=== PATIENT | male | born 1965 | race Caucasian/White ===

== ENCOUNTER 2017-04-19 19:03 | Inpatient (IN) | payer MEDICARE ==
[2017-04-19 19:36] LABS: #Basophils 0.1 thou/uL (0.0-0.2); #Eosinphils 0.3 thou/uL (0.0-0.7); #Lymphocytes 1.2 thou/uL (1.20-3.40); #Monocytes 0.9 thou/uL (0.11-0.59); #Neutrophils 11.8 thou/uL (1.40-6.50); %Basophils 0.6 % (0.0-1.0); %Eosinophils 2.2 % (0.0-10.0); %Lymphocytes 8.6 % (21.0-51.0); %Neutrophils 82.6 % (42.0-75.0); Hemoglobin 14.2 g/dL (14.0-18.0); Mean Corpuscular HGB CONC 32.2 g/dL (32.0-36.0); Mean Corpuscular Hemoglobin 30.5 pg (27.0-31.0); Mean Corpuscular Volume 94.5 fl (80.0-94.0); Mean Platelet Volume 8.3 fL (7.4-10.4); Platelet Count 304 thou/uL (130-400); RBC Distribution Width 13.6 % (11.5-14.5); Red Blood Cell (RBC) Count 4.65 mill/uL (4.70-6.10); White Blood Cell (WBC) Count 14.3 thou/uL (4.8-10.8)
[2017-04-19 19:43] LABS: PTT 38.2 SEC (22.9-36.1); Prothrombin Time 13.4 SEC (12.0-14.7)
[2017-04-19 19:56] LABS: ALT (SGPT) 11 U/L (8-55); AST (SGOT) 17 U/L (5-34); Albumin 3.8 g/dL (3.5-5.0); Alkaline Phosphatase 98 U/L (40-150); Anion Gap 14 mmol/L (10-20); BUN (Urea Nitrogen) 11 mg/dL (8.4-25.7); Calc. Creatinine Clearance 0 mL/min (70-130); Calcium 9.7 mg/dL (7.8-10.44); Carbon Dioxide 27 mmol/L (22-29); Chloride 104 mmol/L (98-107); Estimated GFR-MDRD 88; Glucose 92 mg/dL (70-105); Potassium 4.5 mmol/L (3.5-5.1); Protein, Total 6.8 g/dL (6.0-8.3); Sodium 140 mmol/L (136-145)
--- NOTE | 2017-04-19 20:39 | RAD ---
PORTABLE CHEST: 04/19/17 HISTORY: Pneumothorax. No comparison available. There is a right sided chest tube in place. There is diffuse interstitial and confluent alveolar infi ltrate throughout the right mid and lower lung and there is a right sided effusion. There is right ap ical opacification which may represent loculated apical fluid or pleural thickening. Postoperative ch anges with radiopaque suture noted overlying the right apex. The left lung is well aerated and clear. IMPRESSION: 1. Diffuse infiltrate throughout the right lung more prominent in the right mid and lower lung w ith a right sided effusion. 2. Right apical opacification suggesting loculated fluid in the right apex. A right sided chest tube is noted. POS: [facility]
[2017-04-19] MEDS ORDERED: Ondansetron HCl/PF 4 MG/2 ML Vial ONE (20:41)
[2017-04-19] MEDS ORDERED: cefTRIAXone\\ROCEPHIN 1 GM in Sodium Chloride 0.9% 100 ML IVPB SCH (22:45)
[2017-04-19] MEDS: Nicotine 14 MG PATCH TD SCH (23:45)
[2017-04-19] MEDS ORDERED: Vancomycin HCl 1 GM in Premix Bag 1 BAG IVPB SCH (23:59)
[2017-04-20] MEDS: cefTRIAXone\\ROCEPHIN 1 GM, Syringe 0.4 ML in Sterile Water 9.6 ML SLOW IVP SCH ×2 (00:03→22:13)
--- NOTE | 2017-04-20 01:45 | HP ---
CHIEF COMPLAINT: Pneumothorax. PRIMARY CARE PHYSICIAN: Patient does not have a primary care provider. HISTORY OF PRESENT ILLNESS: This is a 52-year-old male who was recently hospitalized in [place] for a spontaneous pneumothorax approximately 2 weeks ago, he had a chest tube placed, the chest tube was removed and he subsequently had a pleurodesis. In followup on an outpatient basis, he is demonstrating shortness of breath. Repeat imaging demonstrated a large pneumothorax. Chest tube was subsequently placed over in [place] and the patient was transferred to our facility as they did not have any intensive care beds available over at their facility. At the time of my evaluation, the patient has a left-sided chest tube to what appears to be a low suction on the wall. He is conversant, endorses chest pain , particularly with deep breaths, but otherwise has no other complaints. REVIEW OF SYSTEMS: As per HPI. Constitutional: Denies any fevers or chills. Endorses an approximately 20- pound weight loss over the last year that has been unintentional. HEENT: Denies any dizziness, new headaches, dizziness or vision changes. Cardiovascular: Denies any shortness of breath. Endorses chest pain located and localized to his chest tube placement site. Respiratory: He states that prior to his spontaneous pneumothorax, he was experiencing upper respiratory infection, but otherwise denies any current cough or sputum production. Gastrointestinal: Patient denies any nausea, any vomiting. Does endorse early satiety over the last year. Denies any diarrhea or constipation. Genitourinary: Denies any dysuria, changes in urinary frequency quality or quantity. Musculoskeletal: Denies any new myalgias or arthralgias, but overall generalized subjective weakness compared to previously. Remainder of review of systems otherwise negative. PAST MEDICAL HISTORY: As per above. Patient has no prior known medical issues prior to this spontaneous pneumothorax. PAST SURGICAL HISTORY: No prior surgeries. FAMILY HISTORY: No known family history of recurrent pneumothoraces. No family history of active pulmonary or cardiac disease. HOME MEDICATIONS: Please see the EMR for full records. Patient denies any chronic home medications. ALLERGIES: No known drug allergies. SOCIAL HISTORY: The patient is a smoker who recently quit in 03/2017 after his spontaneous pneumothorax. Denies any alcohol or illicit drug use. He indicates that his sister at bedside would be his medical decision maker if he is unable to make his own medical decisions and wishes to be FULL CODE at this point in time. PHYSICAL EXAMINATION: VITAL SIGNS: Blood pressure 138/64, heart rate is 67, respirations 18, satting 98% on room air, temperature 98.5. GENERAL: The patient is awake, alert, conversant, in no acute distress, appears to be a reasonable historian. HEENT: Normocephalic, atraumatic. Equal ocular motions are intact. Pupils are equal and reactive. Edentulous. No posterior oropharyngeal exudate or erythema. CARDIOVASCULAR: S1, S2. Pulses 2+ in bilateral upper extremities, no pitting pedal edema. RESPIRATORY: Limited anterior examination, limited air movement secondary to patient not wanting to take deep breaths due to pain, but otherwise clear to auscultation bilaterally. No wheezes, rales or rhonchi. ABDOMEN: Positive bowel sounds, soft, nontender to palpation. NEUROLOGIC: Able to move all 4 extremities equally. LABORATORY DATA AND IMAGING: On 04/19/2017, chest x-ray, impression, "diffuse infiltrate throughout the right lung, more prominent in the right middle and lower lung with a right-sided effusion. Right apical opacification suggesting localized fluid in the right apex. A right-sided chest tube is noted." WBC 14.3, hemoglobin 14.2, hematocrit 43.9, platelets 304. PT 13.4, INR 1.0, APTT 38.2. Sodium 140, potassium 4.5, chloride 104, bicarb 27, BUN 11, creatinine 0.9, glucose 92, calcium 9.7, total bilirubin 1.0, AST 17, ALT 11, alkaline phosphatase 98, total protein 6.8, albumin 3.8, globulin 3.0. ASSESSMENT AND PLAN: 1. Recurrent pneumothorax, right side. I appreciate CV Surgery consultation. The patient currently has a chest tube. We will manage as per CV surgical recommendations. Unclear etiology for the patient's recurrent pneumothorax, although this certainly could be related to his known tobacco history in the setting of likely after diagnosis of COPD and emphysematous disease. Continue to closely monitor respiratory status. Recommend repeat chest x-ray in the a.m. 2. Sepsis with respirations of 20 earlier in the emergency department documentation along with leukocytosis and a question of infiltrate on the right side. Empiric antibiotics to include ceftriaxone, vancomycin secondary to recent instrumentation of the right pulmonary parenchyma. We will closely monitor. Repeat CBC in the a.m. 3. History of tobacco use. We will closely monitor respiratory status if there is any consistency with a potential clinical diagnosis of COPD would have a low threshold to initiate a COPD exacerbation regimen. However, as patient currently appears to be stable from a respiratory standpoint. 4. Admit as an inpatient. FULL CODE. Thank you for asking me to care for this patient. VIRGINIAD
--- NOTE | 2017-04-20 01:48 | CON ---
DATE OF CONSULTATION: 04/19/2017 REQUESTING PHYSICIAN: Dr. Holder in the emergency room. CHIEF COMPLAINT: Recurrent pneumothorax. 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 I spoke with the transferring physician, Dr. Craven in [place]. Dr. Craven related that abo ut 2 weeks ago, he had a right-sided pneumothorax that did not say expanded during routine chest tube management and he underwent thoracoscopic plication of apical blebs with mechanical pleurodesis. He appeared to do well. His chest tube was removed and he was sent home, but today when home health ch taryn done, he was found to be hypoxic and when brought to the hospital, he was found to have a large r ight-sided pneumothorax again. There were couple of areas of tethering of the lung and a little bit of fluid, modest amount of bloody fluid was evacuated upon placing right-sided 32-American chest tube. The lung was reexpanded well, but the standard of care at that hospital would be to place such patie nt in the intensive care unit. There was no bed available and he was transferred here. PAST SURGICAL HISTORY: Significant for being mentally challenged. MEDICATIONS: He was recently started on lisinopril 20 mg a day and Tylenol No.3 as needed for pain. ALLERGIES: He reports an allergy to PENICILLIN, which causes rash. REVIEW OF SYSTEMS: Most notable for some of his cognitive challenges. PHYSICAL EXAMINATION: GENERAL: He is in no distress. He has a right-sided chest tube in place with a modest air leak. VITAL SIGNS: His heart rate is 68, blood pressure 121/62, respirations 26, O2 sats are 97%. LUNGS: He has distant breath sounds. Regular rate and rhythm. ABDOMEN: Soft and nontender. LABORATORY DATA AND X-RAY FINDINGS: His chest x-ray is consistent with significant COPD. His right- sided chest tube in place with good re-expansion of the lung with the exception of a very small area at the apex is not completely expanded. IMPRESSION AND RECOMMENDATIONS: As outlined to me by Dr. Craven, I would think that this probably re presents an early recurrence before the mechanical pleurodesis had a chance to "set up" and my plan w ould be to attempt a simple routine chest tube management of this episode of pneumothorax and defer r e-intervening for standard criteria of failure to re-expand the lung, failure to seal the air leak or recurrence of his pneumothorax.
[2017-04-20 02:46] VITALS: BMI 14.8
[2017-04-20] MEDS: Ondansetron HCl/PF 4 MG/2 ML Vial IVP PRN ×2 (03:58→23:46)
[2017-04-20 04:35] LABS: #Basophils 0.1 thou/uL (0.0-0.2); #Eosinphils 0.1 thou/uL (0.0-0.7); #Lymphocytes 1.4 thou/uL (1.20-3.40); #Monocytes 0.6 thou/uL (0.11-0.59); #Neutrophils 10.1 thou/uL (1.40-6.50); %Basophils 0.6 % (0.0-1.0); %Eosinophils 0.6 % (0.0-10.0); %Lymphocytes 11.5 % (21.0-51.0); %Monocytes 4.6 % (0.0-10.0); %Neutrophils 82.7 % (42.0-75.0); Hemoglobin 13.1 g/dL (14.0-18.0); Mean Corpuscular HGB CONC 32.5 g/dL (32.0-36.0); Mean Corpuscular Hemoglobin 30.7 pg (27.0-31.0); Mean Corpuscular Volume 94.4 fl (80.0-94.0); Mean Platelet Volume 8.8 fL (7.4-10.4); Platelet Count 280 thou/uL (130-400); RBC Distribution Width 13.5 % (11.5-14.5); Red Blood Cell (RBC) Count 4.27 mill/uL (4.70-6.10); White Blood Cell (WBC) Count 12.2 thou/uL (4.8-10.8)
[2017-04-20 04:52] LABS: Anion Gap 13 mmol/L (10-20); BUN (Urea Nitrogen) 17 mg/dL (8.4-25.7); Calc. Creatinine Clearance 65 mL/min (70-130); Calcium 9.5 mg/dL (7.8-10.44); Carbon Dioxide 28 mmol/L (22-29); Chloride 102 mmol/L (98-107); Estimated GFR-MDRD 84; Glucose 100 mg/dL (70-105); Sodium 138 mmol/L (136-145)
[2017-04-20] MEDS: Sodium Chloride 0.9% 1,000 ML IV SCH ×3 (06:32→20:10)
--- NOTE | 2017-04-20 07:30 | RAD ---
CHEST PA AND LATERAL: HISTORY: A 52-year-old male with history of followup pneumothorax. FINDINGS: Right chest tube in place. Again noted is a small right apical pneumothorax. Patchy interstitial an d reticulonodular parenchymal changes in the right mid and particularly in the right lower lobe. The left chest is stable. IMPRESSION: Stable small apical pneumothorax. Stable right lung parenchymal changes. Continued followup for com plete clearing. POS: [facility]
[2017-04-20] MEDS: Vancomycin HCl 750 MG in Sodium Chloride 0.9% 250 ML 250 ML IVPB SCH ×3 (08:16→23:40)
[2017-04-20] MEDS ORDERED: FLU VACC QS2017-18 36 mo. & older 0.5 ML SYRINGE IM ONE (09:00)
[2017-04-20] MEDS: Heparin 5,000 UNITS/ML VIAL SC SCH ×3 (09:09→20:04)
[2017-04-20] MEDS: Famotidine/PF 20 mg/2ml Vial SLOW IVP SCH ×2 (09:09→20:04)
--- NOTE | 2017-04-20 14:10 | PDOC.PN ---
- Subjective Encounter Start Date: 04/20/17 Encounter Start Time: 14:12 Subjective: No new complaints. -: Sitting comfortably in bed. -: No acute overnight events. - Objective Resuscitation Status: Resuscitation Status FULL:Full Resuscitation MAR Reviewed: Yes Vital Signs & Weight: Vital Signs (12 hours) Temp Pulse Resp BP Pulse Ox 04/20/17 12:00 98.3 F 66 15 159/83 H 99 04/20/17 08:40 97.7 F 92 14 96 04/20/17 07:57 97.7 F 92 14 150/73 H 96 04/20/17 04:31 97.9 F 72 16 120/75 97 Weight Admit Weight 112 lb Weight 112 lb I&O: 04/19/17 04/20/17 04/21/17 06:59 06:59 06:59 Intake Total 350 Output Total 200 Balance 150 Result Diagrams: 04/20/17 03:47 04/20/17 03:47 Phys Exam - Physical Examination Constitutional: NAD HEENT: PERRLA, moist MMs, sclera anicteric Neck: supple, full ROM Respiratory: no wheezing, no rales, no rhonchi, clear to auscultation bilateral decreased breath sounds on the left Cardiovascular: no rub Gastrointestinal: soft, non-tender, no distention, positive bowel sounds Musculoskeletal: no edema, pulses present Psychiatric: normal affect, A&O x 3 Skin: no rash, normal turgor Dx/Plan (1) Pneumothorax Code(s): J93.9 - PNEUMOTHORAX, UNSPECIFIED Status: Acute Qualifiers: Pneumothorax type: spontaneous, primary Qualified Code(s): J93.11 - Primary spontaneous pneumothorax Comment: Had pleurodesis failure. Admitted recently for pneumothorax @ [facility]. Stable s/p chest tube 04/19. Obtain serial CXR Monitor vital signs Reiterate smoking cessation. (2) Sepsis Code(s): A41.9 - SEPSIS, UNSPECIFIED ORGANISM Status: Acute Qualifiers: Sepsis type: sepsis due to unspecified organism Qualified Code(s): A41.9 - Sepsis, unspecified organism Comment: Stable. Started on broad spectrum abx. Will continue. (3) Tobacco abuse Code(s): Z72.0 - TOBACCO USE Status: Acute Plan: Smoking cessation emphasized. - Plan cont current plan of care, continue antibiotics, respiratory therapy * .
[2017-04-20] MEDS: Nicotine 14 MG PATCH TD SCH (22:13)
[2017-04-20] MEDS: Acetaminophen 325 MG TAB PO PRN (22:14)
[2017-04-20 23:20] LABS: Vancomycin, Trough 19.7 ug/mL
[2017-04-21] MEDS: Acetaminophen 325 MG TAB PO PRN ×3 (04:32→22:07)
[2017-04-21 04:38] LABS: #Basophils 0.1 thou/uL (0.0-0.2); #Eosinphils 0.8 thou/uL (0.0-0.7); #Lymphocytes 1.6 thou/uL (1.20-3.40); #Monocytes 0.6 thou/uL (0.11-0.59); #Neutrophils 5.5 thou/uL (1.40-6.50); %Basophils 1.1 % (0.0-1.0); %Eosinophils 9.7 % (0.0-10.0); %Lymphocytes 18.4 % (21.0-51.0); %Monocytes 7.1 % (0.0-10.0); %Neutrophils 63.7 % (42.0-75.0); Hemoglobin 10.7 g/dL (14.0-18.0); Mean Corpuscular HGB CONC 31.8 g/dL (32.0-36.0); Mean Corpuscular Hemoglobin 29.9 pg (27.0-31.0); Mean Platelet Volume 8.5 fL (7.4-10.4); Platelet Count 226 thou/uL (130-400); Red Blood Cell (RBC) Count 3.58 mill/uL (4.70-6.10); White Blood Cell (WBC) Count 8.6 thou/uL (4.8-10.8)
[2017-04-21 04:49] LABS: Anion Gap 12 mmol/L (10-20); BUN (Urea Nitrogen) 17 mg/dL (8.4-25.7); Calc. Creatinine Clearance 74 mL/min (70-130); Calcium 8.7 mg/dL (7.8-10.44); Carbon Dioxide 25 mmol/L (22-29); Chloride 106 mmol/L (98-107); Estimated GFR-MDRD Greater than 90; Glucose 88 mg/dL (70-105); Sodium 139 mmol/L (136-145)
[2017-04-21] MEDS: Heparin 5,000 UNITS/ML VIAL SC SCH ×3 (08:38→20:43)
[2017-04-21] MEDS: Lisinopril 20 MG TAB PO SCH (08:38)
[2017-04-21] MEDS: Famotidine/PF 20 mg/2ml Vial SLOW IVP SCH ×2 (08:39→20:43)
[2017-04-21] MEDS: Sodium Chloride 0.9% 1,000 ML IV SCH (08:40)
--- NOTE | 2017-04-21 11:18 | PDOC.PN ---
- Subjective Encounter Start Date: 04/21/17 Encounter Start Time: 11:21 Subjective: No acute events overnight -: Patient c/o pain around chest tube site. - Objective Resuscitation Status: Resuscitation Status FULL:Full Resuscitation Vital Signs & Weight: Vital Signs (12 hours) Temp Pulse Resp BP BP Pulse Ox 04/21/17 08:38 145/75 H 04/21/17 08:00 97.9 F 73 16 97 04/21/17 07:40 97.9 F 73 16 145/75 H 97 04/21/17 04:59 98.0 F 72 16 179/80 H 98 04/21/17 00:29 98.1 F 72 16 167/75 H 98 Weight Admit Weight 112 lb Weight 112 lb I&O: 04/20/17 04/21/17 04/22/17 06:59 06:59 06:59 Intake Total 2210 1500 Output Total 850 70 Balance 1360 1430 Result Diagrams: 04/21/17 03:59 04/21/17 03:59 Phys Exam - Physical Examination Constitutional: NAD HEENT: PERRLA, moist MMs, sclera anicteric Neck: supple, full ROM Respiratory: no wheezing, no rales, no rhonchi, clear to auscultation bilateral (reduced BS R lung field apically) Cardiovascular: RRR, no significant murmur, no rub Gastrointestinal: soft, non-tender, no distention, positive bowel sounds Musculoskeletal: no edema, pulses present Neurological: non-focal, moves all 4 limbs Psychiatric: normal affect, A&O x 3 Skin: no rash, normal turgor Dx/Plan (1) HTN (hypertension) Code(s): I10 - ESSENTIAL (PRIMARY) HYPERTENSION Status: Acute Qualifiers: Hypertension type: essential hypertension Qualified Code(s): I10 - Essential (primary) hypertension Comment: On Lisinopril. Fairly well controlled. (2) Pneumothorax Code(s): J93.9 - PNEUMOTHORAX, UNSPECIFIED Status: Acute Qualifiers: Pneumothorax type: spontaneous, primary Qualified Code(s): J93.11 - Primary spontaneous pneumothorax Comment: Had pleurodesis failure. Admitted recently for pneumothorax @ [place] s/p chest tube /. f/u pulm recs regarding chest tube removal. Ensure adequate pain control f/u CXR report (3) Tobacco abuse Code(s): Z72.0 - TOBACCO USE Status: Acute Comment: Reiterated smoking cessation. Nicotine patches. (4) Sepsis Code(s): A41.9 - SEPSIS, UNSPECIFIED ORGANISM Status: Resolved Qualifiers: Sepsis type: sepsis due to unspecified organism Qualified Code(s): A41.9 - Sepsis, unspecified organism Comment: Initially thought and started on broad spectrum Abx. Abx have been d/c. - Plan cont current plan of care, respiratory therapy, incentive spirometry, DVT proph w/heparin * .
[2017-04-21] MEDS ORDERED: Vancomycin HCl 750 MG in Sodium Chloride 0.9% 250 ML 250 ML IVPB SCH (12:00)
--- NOTE | 2017-04-21 12:39 | RAD ---
PORTABLE CHEST: HX:FU PNEUMOTHORAX Comparison: Prior day's exam. FINDINGS: Heart size within normal limits. Left lung remains clear. Right chest tube remains in place. Surgical chain-type sutures are seen in the right upper lobe. Right apical pneumothorax persists. The right s ided parenchymal changes are stable. IMPRESSION: Stable overall exam. POS: [facility]
[2017-04-21] MEDS: Nicotine 14 MG PATCH TD SCH (22:01)
[2017-04-22] MEDS: Acetaminophen 325 MG TAB PO PRN ×4 (03:54→20:24)
[2017-04-22 05:27] LABS: #Basophils 0.1 thou/uL (0.0-0.2); #Lymphocytes 1.8 thou/uL (1.20-3.40); #Monocytes 0.7 thou/uL (0.11-0.59); #Neutrophils 3.8 thou/uL (1.40-6.50); %Basophils 0.9 % (0.0-1.0); %Eosinophils 13.1 % (0.0-10.0); %Lymphocytes 24.9 % (21.0-51.0); %Monocytes 9.4 % (0.0-10.0); %Neutrophils 51.7 % (42.0-75.0); Hemoglobin 11.5 g/dL (14.0-18.0); Mean Corpuscular Hemoglobin 31.3 pg (27.0-31.0); Mean Corpuscular Volume 94.8 fl (80.0-94.0); Mean Platelet Volume 8.7 fL (7.4-10.4); Platelet Count 219 thou/uL (130-400); RBC Distribution Width 13.1 % (11.5-14.5); Red Blood Cell (RBC) Count 3.66 mill/uL (4.70-6.10); White Blood Cell (WBC) Count 7.4 thou/uL (4.8-10.8)
[2017-04-22 05:43] LABS: Anion Gap 8 mmol/L (10-20); BUN (Urea Nitrogen) 11 mg/dL (8.4-25.7); Calc. Creatinine Clearance 75 mL/min (70-130); Carbon Dioxide 31 mmol/L (22-29); Chloride 106 mmol/L (98-107); Estimated GFR-MDRD Greater than 90; Glucose 94 mg/dL (70-105); Potassium 3.8 mmol/L (3.5-5.1); Sodium 141 mmol/L (136-145)
--- NOTE | 2017-04-22 09:09 | RAD ---
CHEST 1 VIEW: Date: 04/22/17 HISTORY: Pneumothorax. Follow-up. COMPARISON: 04/21/17. FINDINGS: Cardiac silhouette is magnified by projection. Pulmonary vasculature is upper limits of normal. Right thoracostomy tube remains in good position. Right apical pneumothorax is unchanged in appearance fro m the previous exam. Postoperative changes are again demonstrated. Parenchymal opacity at the right b ase is stable. Lungs are otherwise hyperinflated. IMPRESSION: Stable postoperative appearance of the chest. POS: [facility]
[2017-04-22] MEDS: Lisinopril 20 MG TAB PO SCH (10:05)
[2017-04-22] MEDS: Famotidine/PF 20 mg/2ml Vial SLOW IVP SCH (10:06)
[2017-04-22] MEDS: Heparin 5,000 UNITS/ML VIAL SC SCH ×3 (10:06→20:24)
--- NOTE | 2017-04-22 11:07 | PDOC.PN ---
- Subjective Encounter Start Date: 04/22/17 Encounter Start Time: 11:09 Subjective: No new complaints. -: No acute events overnight - Objective Resuscitation Status: Resuscitation Status FULL:Full Resuscitation MAR Reviewed: Yes Vital Signs & Weight: Vital Signs (12 hours) Temp Pulse Resp BP BP Pulse Ox 04/22/17 10:05 170/80 H 04/22/17 07:16 97.9 F 56 L 16 145/83 H 99 04/22/17 04:00 98 F 63 20 159/75 H 97 04/22/17 01:32 98 04/21/17 23:57 98.3 F 70 20 177/77 H 97 Weight Admit Weight 112 lb Weight 112 lb I&O: 04/21/17 04/22/17 04/23/17 06:59 06:59 06:59 Intake Total 2210 2590 Output Total 850 1780 Balance 1360 810 Result Diagrams: 04/22/17 04:29 04/22/17 04:29 Phys Exam - Physical Examination Constitutional: NAD HEENT: PERRLA, moist MMs, sclera anicteric Neck: supple, full ROM Respiratory: no wheezing, no rales, no rhonchi Reduced BS oon R w mild crackles Cardiovascular: no rub Gastrointestinal: soft, non-tender, no distention, positive bowel sounds Musculoskeletal: no edema, pulses present Neurological: non-focal, moves all 4 limbs Psychiatric: normal affect, A&O x 3 Skin: no rash, normal turgor Dx/Plan (1) HTN (hypertension) Code(s): I10 - ESSENTIAL (PRIMARY) HYPERTENSION Status: Acute Qualifiers: Hypertension type: essential hypertension Qualified Code(s): I10 - Essential (primary) hypertension Comment: On Lisinopril. Not at goal. Dose increased to 40 mg daily. (2) Pneumothorax Code(s): J93.9 - PNEUMOTHORAX, UNSPECIFIED Status: Acute Qualifiers: Pneumothorax type: spontaneous, primary Qualified Code(s): J93.11 - Primary spontaneous pneumothorax Comment: Had pleurodesis failure. Admitted recently for pneumothorax @ [facility]. Stable s/p chest tube 04/19. f/u pulm recs regarding chest tube removal. Ensure adequate pain control Serial CXR with not much change. Will consult pulmonary. (3) Tobacco abuse Code(s): Z72.0 - TOBACCO USE Status: Acute Comment: Reiterated smoking cessation. Nicotine patches. (4) Sepsis Code(s): A41.9 - SEPSIS, UNSPECIFIED ORGANISM Status: Resolved Qualifiers: Sepsis type: sepsis due to unspecified organism Qualified Code(s): A41.9 - Sepsis, unspecified organism Comment: Initially thought and started on broad spectrum Abx. Abx have been d/c. - Plan cont current plan of care, plan discussed w/ family, DVT proph w/heparin * .
[2017-04-22] MEDS: Mometasone/Formoterol 120 PUFF INHALER INH SCH (19:00)
[2017-04-22] MEDS: Doxycycline 100 MG CAP PO SCH (20:24)
[2017-04-22] MEDS: Famotidine 20 MG TAB PO SCH (20:24)
[2017-04-22] MEDS: Nicotine 14 MG PATCH TD SCH (23:32)
--- NOTE | 2017-04-22 23:46 | CON ---
DATE OF CONSULTATION: 04/22/2017 HISTORY OF PRESENT ILLNESS: Hector Franks is a 52-year-old cachectic gentleman with longstanding t obacco abuse who apparently was transferred here from [place] for a spontaneous pneumothorax with right-sided chest tube in place. We are being consulted today it is unclear for what he has already been seen by Cardiovascular Surgery. He appears to have a small leak. X-ray today shows a right-james ed infiltrate. The patient denies any previous history of TB, pneumonia, or bronchial asthma. In fact, he says on he is able to walk about 50 feet without getting markedly short of breath. PAST MEDICAL HISTORY: Pertinent for hypertension. PREVIOUS SURGERIES: None except for the recent chest tube. SOCIAL HISTORY: As noted, he is disabled. FAMILY HISTORY: Unremarkable. REVIEW OF SYSTEMS: Ten-point negative. Please note his brother is at the bedside. Additional histo ry is obtained from the patient. No other family members present. I reviewed all of his x-rays and reports. PHYSICAL EXAMINATION: GENERAL: No distress. VITAL SIGNS: Blood pressure 160/70 temperature 97, pulse 64. CHEST: Decreased breath sounds without any wheezing. CARDIAC: Normal S1 and S2. No gallops. ABDOMEN: Soft. No masses. LABORATORY DATA: White count 7000, H and H 11 and 34, and platelet count 219. Electrolytes are norm al. Chest x-ray shows right-sided chest tube. Apparently, he has had pleurodesis done. IMPRESSION: From pulmonary standpoint of view, nothing to offer at this time. Continue empiric anti biotics, neb treatments, and supportive care. This is a consultation note of 70 minutes of which 50% time was spent at the bedside.
[2017-04-23] MEDS: Acetaminophen 325 MG TAB PO PRN ×4 (03:48→21:49)
[2017-04-23 04:49] LABS: #Basophils 0.1 thou/uL (0.0-0.2); #Eosinphils 1.2 thou/uL (0.0-0.7); #Lymphocytes 1.8 thou/uL (1.20-3.40); #Monocytes 0.7 thou/uL (0.11-0.59); #Neutrophils 3.7 thou/uL (1.40-6.50); %Basophils 1.6 % (0.0-1.0); %Eosinophils 16.1 % (0.0-10.0); %Lymphocytes 23.6 % (21.0-51.0); %Monocytes 8.8 % (0.0-10.0); %Neutrophils 49.9 % (42.0-75.0); Hemoglobin 11.2 g/dL (14.0-18.0); Mean Corpuscular HGB CONC 33.1 g/dL (32.0-36.0); Mean Corpuscular Hemoglobin 31.1 pg (27.0-31.0); Mean Corpuscular Volume 93.9 fl (80.0-94.0); Mean Platelet Volume 8.9 fL (7.4-10.4); Platelet Count 212 thou/uL (130-400); RBC Distribution Width 13.2 % (11.5-14.5); White Blood Cell (WBC) Count 7.4 thou/uL (4.8-10.8)
[2017-04-23 04:55] LABS: Anion Gap 9 mmol/L (10-20); BUN (Urea Nitrogen) 12 mg/dL (8.4-25.7); Calc. Creatinine Clearance 84 mL/min (70-130); Calcium 8.9 mg/dL (7.8-10.44); Carbon Dioxide 29 mmol/L (22-29); Chloride 106 mmol/L (98-107); Estimated GFR-MDRD Greater than 90; Glucose 98 mg/dL (70-105); Potassium 3.5 mmol/L (3.5-5.1); Sodium 140 mmol/L (136-145)
[2017-04-23] MEDS: Mometasone/Formoterol 120 PUFF INHALER INH SCH ×2 (07:11→19:08)
[2017-04-23] MEDS: Doxycycline 100 MG CAP PO SCH ×2 (08:38→21:49)
[2017-04-23] MEDS: Lisinopril 20 MG TAB PO SCH (08:38)
[2017-04-23] MEDS: Famotidine 20 MG TAB PO SCH ×2 (08:38→21:49)
[2017-04-23] MEDS: Heparin 5,000 UNITS/ML VIAL SC SCH ×4 (08:39→21:49)
--- NOTE | 2017-04-23 09:42 | RAD ---
PORTABLE AP CHEST: Date: 04/23/17 HISTORY: Pneumothorax, follow-up evaluation. COMPARISON: 04/22/17. FINDINGS: Right-sided thoracostomy tube remains in place and unchanged in position. Right apical pneumothorax w ith associated increased density also present at the right lung apex is again noted and unchanged. Th e interstitial and alveolar opacities at the right lung base do appear mildly improved from the prior exam. Left lung is clear. Cardiac silhouette and pulmonary vasculature are within normal limits. IMPRESSION: 1. Stable chest with right-sided thoracostomy tube and right apical pneumothorax with persistent inc reased density also seen at the right lung apex which may be related to fluid. 2. Mild improvement in aeration at the right lung base with persistent interstitial and alveolar opa cities present which may be related to infectious process. POS: [facility]
--- NOTE | 2017-04-23 10:56 | PDOC.PN ---
- Subjective Encounter Start Date: 04/23/17 Encounter Start Time: 11:05 Subjective: No new complaints. Pain well controlled. -: No acute events overnight. - Objective Resuscitation Status: Resuscitation Status FULL:Full Resuscitation Vital Signs & Weight: Vital Signs (12 hours) Temp Pulse Resp BP BP Pulse Ox 04/23/17 08:38 97.8 F 61 20 135/80 98 04/23/17 07:11 60 16 98 04/23/17 07:05 97.8 F 61 20 135/80 98 04/23/17 05:12 97.8 F 59 L 16 151/81 H 97 04/22/17 23:15 98.1 F 62 18 162/78 H 99 Weight Admit Weight 112 lb Weight 112 lb I&O: 04/22/17 04/23/17 04/24/17 06:59 06:59 06:59 Intake Total 2590 1575 Output Total 1780 1430 Balance 810 145 Result Diagrams: 04/23/17 04:07 04/23/17 04:07 Phys Exam - Physical Examination Constitutional: NAD HEENT: PERRLA, moist MMs, sclera anicteric Neck: supple, full ROM Respiratory: no wheezing, no rales, no rhonchi, clear to auscultation bilateral R chest tube in place. Cardiovascular: RRR, no significant murmur, no rub Gastrointestinal: soft, non-tender, no distention, positive bowel sounds Musculoskeletal: no edema, pulses present Neurological: non-focal, normal sensation Psychiatric: normal affect, A&O x 3 Skin: no rash, normal turgor Dx/Plan (1) HTN (hypertension) Code(s): I10 - ESSENTIAL (PRIMARY) HYPERTENSION Status: Acute Qualifiers: Hypertension type: essential hypertension Qualified Code(s): I10 - Essential (primary) hypertension Plan: Continue Lisinopril. Comment: On Lisinopril 40 mg daily. (2) Pneumothorax Code(s): J93.9 - PNEUMOTHORAX, UNSPECIFIED Status: Acute Qualifiers: Pneumothorax type: spontaneous, primary Qualified Code(s): J93.11 - Primary spontaneous pneumothorax Comment: Repeat CXR 04/23 shows mild improvement. Had pleurodesis failure. Admitted recently for pneumothorax @ [place]. s/p chest tube 04/19. (3) Tobacco abuse Code(s): Z72.0 - TOBACCO USE Status: Acute Comment: Reiterated smoking cessation. Nicotine patches. (4) Sepsis Code(s): A41.9 - SEPSIS, UNSPECIFIED ORGANISM Status: Resolved Qualifiers: Sepsis type: sepsis due to unspecified organism Qualified Code(s): A41.9 - Sepsis, unspecified organism Comment: Initially thought and started on broad spectrum Abx. Abx have been d/c. - Plan cont current plan of care, DVT proph w/heparin * .
--- NOTE | 2017-04-23 13:39 | PRG ---
DATE OF SERVICE: 04/23/2017 SUBJECTIVE: Golden has pain. No shortness of breath. OBJECTIVE: Sats are 90% on room air, respirations 20, temperature 97. Chest tubes on water seal. LABORATORY DATA: White count 7000, H and H 11 and 38. Electrolytes are normal. X-ray taken today shows improvement in his right-sided infiltrate. IMPRESSION: Chronic obstructive pulmonary disease, spontaneous pneumothorax, possibly pneumonia. PLAN: Continue doxy, continue Dulera. Home when CT is removed by surgery. I spoke to Dr. Olsen. They keep him close watch on this.
[2017-04-23] MEDS: Nicotine 14 MG PATCH TD SCH (21:49)
[2017-04-24 04:53] LABS: Hemoglobin 11.9 g/dL (14.0-18.0); Mean Corpuscular HGB CONC 32.7 g/dL (32.0-36.0); Mean Corpuscular Hemoglobin 31.4 pg (27.0-31.0); Platelet Count 225 thou/uL (130-400); RBC Distribution Width 13.4 % (11.5-14.5); Red Blood Cell (RBC) Count 3.78 mill/uL (4.70-6.10); White Blood Cell (WBC) Count 7.6 thou/uL (4.8-10.8)
[2017-04-24] MEDS: Acetaminophen 325 MG TAB PO PRN ×2 (05:05→21:05)
[2017-04-24 05:09] LABS: Anion Gap 12 mmol/L (10-20); BUN (Urea Nitrogen) 14 mg/dL (8.4-25.7); Calc. Creatinine Clearance 71 mL/min (70-130); Calcium 9.3 mg/dL (7.8-10.44); Carbon Dioxide 29 mmol/L (22-29); Chloride 105 mmol/L (98-107); Estimated GFR-MDRD Greater than 90; Glucose 119 mg/dL (70-105); Potassium 3.6 mmol/L (3.5-5.1); Sodium 142 mmol/L (136-145)
[2017-04-24] MEDS: Mometasone/Formoterol 120 PUFF INHALER INH SCH ×2 (07:05→18:26)
[2017-04-24] MEDS: Lisinopril 20 MG TAB PO SCH (09:16)
[2017-04-24] MEDS: Famotidine 20 MG TAB PO SCH ×2 (09:16→21:06)
[2017-04-24] MEDS: Doxycycline 100 MG CAP PO SCH ×2 (09:17→21:05)
[2017-04-24] MEDS: Heparin 5,000 UNITS/ML VIAL SC SCH ×3 (09:17→21:06)
--- NOTE | 2017-04-24 10:48 | PDOC.PN ---
- Subjective Encounter Start Date: 04/24/17 Encounter Start Time: 10:47 -: No complaints. -: No acute events overnight. - Objective Resuscitation Status: Resuscitation Status FULL:Full Resuscitation MAR Reviewed: Yes Vital Signs & Weight: Vital Signs (12 hours) Temp Pulse Resp BP BP Pulse Ox 04/24/17 09:16 152/81 H 04/24/17 08:21 97.8 F 62 20 98 04/24/17 07:10 97.8 F 62 20 152/81 H 98 04/24/17 07:05 66 16 100 04/24/17 04:00 98 F 65 16 133/74 98 04/24/17 00:00 98.3 F 65 20 147/78 H 97 Weight Admit Weight 112 lb Weight 112 lb I&O: 04/23/17 04/24/17 04/25/17 06:59 06:59 06:59 Intake Total 1575 Output Total 1430 120 Balance 145 -120 Result Diagrams: 04/24/17 03:31 04/24/17 03:31 Phys Exam - Physical Examination Constitutional: NAD HEENT: PERRLA, moist MMs, sclera anicteric Neck: supple, full ROM Respiratory: no wheezing, no rales, no rhonchi, clear to auscultation bilateral R chest tube sti Cardiovascular: no significant murmur, no rub Gastrointestinal: soft, non-tender, no distention, positive bowel sounds Musculoskeletal: no edema, pulses present Neurological: non-focal, moves all 4 limbs Psychiatric: normal affect, A&O x 3 Skin: no rash, normal turgor Dx/Plan (1) HTN (hypertension) Code(s): I10 - ESSENTIAL (PRIMARY) HYPERTENSION Status: Acute Qualifiers: Hypertension type: essential hypertension Qualified Code(s): I10 - Essential (primary) hypertension Comment: Fairly well Controlled. Lisinopril increased to 40 mg daily this admission. (2) Pneumothorax Code(s): J93.9 - PNEUMOTHORAX, UNSPECIFIED Status: Acute Qualifiers: Pneumothorax type: spontaneous, primary Qualified Code(s): J93.11 - Primary spontaneous pneumothorax Plan: Pulmonary started on Doxycycline based on CXR findings. Ordered repeat CXR today. Comment: Repeat CXR 04/23 shows mild improvement. Had pleurodesis failure. Admitted recently for pneumothorax @ [facility]. s/p chest tube 04/19. Cardiothoracic surgery following and managing chest tube. (3) Tobacco abuse Code(s): Z72.0 - TOBACCO USE Status: Acute Comment: Reiterated smoking cessation. Nicotine patches. (4) Sepsis Code(s): A41.9 - SEPSIS, UNSPECIFIED ORGANISM Status: Ruled-out Qualifiers: Sepsis type: sepsis due to unspecified organism Qualified Code(s): A41.9 - Sepsis, unspecified organism Comment: Ruled out. Initially thought and started on broad spectrum Abx. Abx have been d/c. - Plan cont current plan of care, continue antibiotics Home once chest tube removed. * .
--- NOTE | 2017-04-24 11:51 | RAD ---
PORTABLE AP CHEST: Date: 04/24/17 HISTORY: Follow-up pneumothorax. FINDINGS: Right-sided thoracostomy tube remains in place and unchanged in position. The right apical pneumothor ax, as well as associated increased density at the right lung apex are again seen and stable. Interst itial densities at the right lung base may be minimally improved, but persist. Left lung remains essie r. There has been no significant interval change from the prior exam. IMPRESSION: 1. Right-sided thoracostomy tube remaining in place with stable pneumothorax at the right lung apex with suggestion of minimal pneumothorax again present at the right lung base. Increased density right lung apex is also stable. 2. Stable interstitial densities right lung base which may be related to persistent infectious proce ss. POS: [facility]
--- NOTE | 2017-04-24 17:30 | PRG ---
DATE OF SERVICE: 04/24/2017 SUBJECTIVE: This morning, he is better, less short of breath. OBJECTIVE: VITAL SIGNS: Room air sats 98, blood pressure 150/80, temperature 97, pulse 62. CHEST: Decreased breath sounds, no wheezing. CARDIAC: Normal S1. ____ suctioned. IMPRESSION: Spontaneous pneumothorax, right side pneumonia, chronic obstructive pulmonary disease. CT removed, can be discharged home on antibiotics.
[2017-04-24] MEDS: Nicotine 14 MG PATCH TD SCH (23:16)
[2017-04-25] MEDS: HYDROcodone/Acetaminophen 10/325 mg Tablet PO PRN ×2 (03:27→23:09)
[2017-04-25] MEDS: Mometasone/Formoterol 120 PUFF INHALER INH SCH ×2 (06:17→19:08)
[2017-04-25] MEDS: Lisinopril 20 MG TAB PO SCH (08:24)
[2017-04-25] MEDS: Doxycycline 100 MG CAP PO SCH ×2 (08:29→22:47)
[2017-04-25] MEDS: Famotidine 20 MG TAB PO SCH ×2 (08:29→22:48)
[2017-04-25] MEDS: Heparin 5,000 UNITS/ML VIAL SC SCH ×3 (08:30→22:48)
--- NOTE | 2017-04-25 09:47 | PRG ---
DATE OF SERVICE: 04/25/2017 This morning in no distress, no pain. PHYSICAL EXAMINATION: VITAL SIGNS: Blood pressure 140/69, room air sats are 100%, respiratory 18, temperature 97. CHEST: Chest revealed decreased breath sounds, no wheezing. CARDIAC: Normal S1-S2. ABDOMEN: Soft, no masses. IMPRESSION: 1. Right spontaneous pneumothorax appears to have resolved. 2. Right-sided pneumonia. 3. Chronic obstructive pulmonary disease. PLAN: Order CT. He is ready for discharge home. Pulmonary will follow at a distance.
--- NOTE | 2017-04-25 09:55 | PDOC.PN ---
- Subjective Encounter Start Date: 04/25/17 Encounter Start Time: 08:00 -: old records requested/rev Patient seen and examined. No new complaints. No overnight events - Objective Resuscitation Status: Resuscitation Status FULL:Full Resuscitation MAR Reviewed: Yes Vital Signs & Weight: Vital Signs (12 hours) Temp Pulse Resp BP BP Pulse Ox 04/25/17 08:24 149/69 H 04/25/17 08:00 97.8 F 54 L 20 149/69 H 100 04/25/17 06:17 59 L 14 96 04/25/17 04:00 97.9 F 59 L 17 152/74 H 98 04/25/17 00:00 98.4 F 67 18 171/75 H 98 Weight Admit Weight 112 lb Weight 112 lb I&O: 04/24/17 04/25/17 04/26/17 06:59 06:59 06:59 Intake Total 1625 Output Total 120 80 Balance -120 1545 Result Diagrams: 04/24/17 03:31 04/24/17 03:31 Radiology Reviewed by me: Yes Phys Exam - Physical Examination Constitutional: NAD HEENT: PERRLA, moist MMs, sclera anicteric Neck: no JVD, supple Respiratory: no wheezing, no rales, no rhonchi Cardiovascular: RRR, no significant murmur, no rub chest tube in place Gastrointestinal: soft, non-tender, no distention, positive bowel sounds Musculoskeletal: no edema, pulses present Neurological: non-focal, normal sensation, moves all 4 limbs Psychiatric: normal affect, A&O x 3 Skin: no rash, normal turgor Dx/Plan (1) Pneumothorax Code(s): J93.9 - PNEUMOTHORAX, UNSPECIFIED Status: Acute Qualifiers: Pneumothorax type: spontaneous, primary Qualified Code(s): J93.11 - Primary spontaneous pneumothorax Comment: (2) COPD (chronic obstructive pulmonary disease) Status: Chronic (3) Protein-calorie malnutrition, moderate Code(s): E44.0 - MODERATE PROTEIN-CALORIE MALNUTRITION Status: Chronic (4) HTN (hypertension) Code(s): I10 - ESSENTIAL (PRIMARY) HYPERTENSION Status: Chronic Qualifiers: Hypertension type: essential hypertension Qualified Code(s): I10 - Essential (primary) hypertension Comment: (5) Tobacco abuse Code(s): Z72.0 - TOBACCO USE Status: Acute Comment: Reiterated smoking cessation. Nicotine patches. (6) Sepsis Code(s): A41.9 - SEPSIS, UNSPECIFIED ORGANISM Status: Ruled-out Qualifiers: Sepsis type: sepsis due to unspecified organism Qualified Code(s): A41.9 - Sepsis, unspecified organism Comment: - Plan cont current plan of care, continue antibiotics, respiratory therapy * once chest tube removed, then will consider discharge when all consultants are ok * medication reviewed as below * symptomatic treatment. Review of Systems - Review of Systems ENT: negative: Ear Pain, Ear Discharge, Nose Pain, Nose Discharge, Nose Congestion, Mouth Pain, Mouth Swelling, Throat Pain, Throat Swelling, Other Respiratory: negative: Cough, Dry, Shortness of Breath, Hemoptysis, SOB with Excertion, Pleuritic Pain, Sputum, Wheezing Cardiovascular: negative: chest pain, palpitations, orthopnea, paroxysmal nocturnal dyspnea, edema, light headedness, other Gastrointestinal: negative: Nausea, Vomiting, Abdominal Pain, Diarrhea, Constipation, Melena, Hematochezia, Other Genitourinary: negative: Dysuria, Frequency, Incontinence, Hematuria, Retention , Other Musculoskeletal: negative: Neck Pain, Shoulder Pain, Arm Pain, Back Pain, Hand Pain, Leg Pain, Foot Pain, Other - Medications/Allergies Allergies/Adverse Reactions: Allergies Allergy/AdvReac Type Severity Reaction Status Date / Time Penicillins Allergy Hives Verified 04/20/17 02:34 Medications: Current Medications Acetaminophen (Tylenol) 650 mg PO Q4H PRN PRN Reason: Headache/Fever or Pain Last Admin: 04/24/17 21:05 Dose: 650 mg Hydrocodone Bitart/Acetaminophen ([place] 10/325) 1 tab PO Q4H PRN PRN Reason: Moderate Pain (4-6) Last Admin: 04/25/17 03:27 Dose: 1 tab Doxycycline Hyclate (Vibramycin) 100 mg PO BID [facility] Last Admin: 04/25/17 08:29 Dose: 100 mg Famotidine (Pepcid) 20 mg PO BID [facility] Last Admin: 04/25/17 08:29 Dose: 20 mg Heparin Sodium (Porcine) (Heparin) 5,000 units SC TID [facility] Last Admin: 04/25/17 08:30 Dose: 5,000 units Lisinopril (Zestril) 40 mg PO DAILY [facility] Last Admin: 04/25/17 08:24 Dose: 40 mg Mometasone Furoate/Formoterol Fumar (Dulera 200 Mcg/5 Mcg Inhaler) 2 puff INH BID-RT [facility] Last Admin: 04/25/17 06:17 Dose: 2 puff Morphine Sulfate (Morphine) 2 mg SLOW IVP Q4H PRN PRN Reason: Breakthrough Pain Last Admin: 04/20/17 03:58 Dose: 2 mg Nicotine (Nicoderm Patch) 14 mg TD Q24HR [facility] Last Admin: 04/24/17 23:16 Dose: 14 mg Ondansetron HCl (Zofran) 4 mg IVP Q6H PRN PRN Reason: Nausea/Vomiting Last Admin: 04/20/17 23:46 Dose: 4 mg
--- NOTE | 2017-04-25 12:03 | RAD ---
CHEST 1 VIEW: HISTORY: Followup pneumothorax. COMPARISON: Prior day's study. FINDINGS: Right chest tube remains in place. The apical pneumothorax appears stable as compared to the prior e xam. Chain-type sutures are noted in this area. The interstitial changes in the right base show imp rovement. IMPRESSION: Improving interstitial change of the right base; otherwise, stable chest. POS: [facility]
[2017-04-25] MEDS: Acetaminophen 325 MG TAB PO PRN (14:40)
[2017-04-25] MEDS: Nicotine 14 MG PATCH TD SCH (22:50)
[2017-04-26] MEDS: HYDROcodone/Acetaminophen 10/325 mg Tablet PO PRN ×2 (04:40→12:16)
[2017-04-26] MEDS: Mometasone/Formoterol 120 PUFF INHALER INH SCH ×2 (05:53→19:04)
--- NOTE | 2017-04-26 08:12 | RAD ---
SINGLE VIEW OF THE CHEST: Comparison: 04-24-17 History: Recurrent right pneumothorax. FINDINGS: Single view of the chest shows a normal sized cardiomediastinal silhouette with atherosclerotic calci fications in the aorta. There is a right sided chest tube with a small right apical pneumothorax. Ple ural thickening is seen in the right apex. No pleural effusion or consolidation are seen. IMPRESSION: Small right apical pneumothorax. POS: [facility]
[2017-04-26] MEDS: Doxycycline 100 MG CAP PO SCH ×2 (08:38→21:12)
[2017-04-26] MEDS: Famotidine 20 MG TAB PO SCH ×2 (08:38→21:13)
[2017-04-26] MEDS: Heparin 5,000 UNITS/ML VIAL SC SCH ×3 (08:38→21:13)
[2017-04-26] MEDS: Lisinopril 20 MG TAB PO SCH (08:39)
[2017-04-26] MEDS: Ondansetron HCl/PF 4 MG/2 ML Vial IVP PRN (09:57)
--- NOTE | 2017-04-26 11:19 | PDOC.PN ---
- Subjective Encounter Start Date: 04/26/17 Encounter Start Time: 08:45 -: old records requested/rev Patient seen and examined. No new complaints. No overnight events - Objective Resuscitation Status: Resuscitation Status FULL:Full Resuscitation MAR Reviewed: Yes Vital Signs & Weight: Vital Signs (12 hours) Temp Pulse Resp BP BP Pulse Ox 04/26/17 08:39 128/78 04/26/17 08:00 97.8 F 62 16 98 04/26/17 05:53 68 14 99 04/26/17 04:53 97.5 F L 66 18 125/69 100 04/26/17 00:59 98.0 F 72 18 162/68 H 94 L Weight Admit Weight 112 lb Weight 112 lb I&O: 04/25/17 04/26/17 04/27/17 06:59 06:59 06:59 Intake Total 1625 2125 Output Total 80 735 Balance 1545 1390 Result Diagrams: 04/24/17 03:31 04/24/17 03:31 Radiology Reviewed by me: Yes (chest xray) Phys Exam - Physical Examination Constitutional: NAD HEENT: PERRLA, moist MMs, sclera anicteric Neck: no JVD, supple Respiratory: no wheezing, no rales, no rhonchi chest tube in place Cardiovascular: RRR, no significant murmur, no rub Gastrointestinal: soft, non-tender, no distention, positive bowel sounds Musculoskeletal: no edema, pulses present Neurological: non-focal, normal sensation, moves all 4 limbs Psychiatric: normal affect, A&O x 3 Skin: no rash, normal turgor Dx/Plan (1) Pneumothorax Code(s): J93.9 - PNEUMOTHORAX, UNSPECIFIED Status: Acute Qualifiers: Pneumothorax type: spontaneous, primary Qualified Code(s): J93.11 - Primary spontaneous pneumothorax Comment: (2) COPD (chronic obstructive pulmonary disease) Status: Chronic (3) Protein-calorie malnutrition, moderate Code(s): E44.0 - MODERATE PROTEIN-CALORIE MALNUTRITION Status: Chronic (4) HTN (hypertension) Code(s): I10 - ESSENTIAL (PRIMARY) HYPERTENSION Status: Chronic Qualifiers: Hypertension type: essential hypertension Qualified Code(s): I10 - Essential (primary) hypertension Comment: (5) Tobacco abuse Code(s): Z72.0 - TOBACCO USE Status: Acute Comment: Reiterated smoking cessation. Nicotine patches. (6) Sepsis Code(s): A41.9 - SEPSIS, UNSPECIFIED ORGANISM Status: Ruled-out Qualifiers: Sepsis type: sepsis due to unspecified organism Qualified Code(s): A41.9 - Sepsis, unspecified organism Comment: - Plan cont current plan of care, respiratory therapy * chest tube management as per CT surgeon * once removed, then next day will consider discharge * medication reviewed as below * symptomatic treatment. Review of Systems - Review of Systems ENT: negative: Ear Pain, Ear Discharge, Nose Pain, Nose Discharge, Nose Congestion, Mouth Pain, Mouth Swelling, Throat Pain, Throat Swelling, Other Respiratory: negative: Cough, Dry, Shortness of Breath, Hemoptysis, SOB with Excertion, Pleuritic Pain, Sputum, Wheezing Cardiovascular: negative: chest pain, palpitations, orthopnea, paroxysmal nocturnal dyspnea, edema, light headedness, other Gastrointestinal: negative: Nausea, Vomiting, Abdominal Pain, Diarrhea, Constipation, Melena, Hematochezia, Other Genitourinary: negative: Dysuria, Frequency, Incontinence, Hematuria, Retention , Other Musculoskeletal: negative: Neck Pain, Shoulder Pain, Arm Pain, Back Pain, Hand Pain, Leg Pain, Foot Pain, Other Skin: negative: Rash, Lesions, Levon, Bruising, Other - Medications/Allergies Allergies/Adverse Reactions: Allergies Allergy/AdvReac Type Severity Reaction Status Date / Time Penicillins Allergy Hives Verified 04/20/17 02:34 Medications: Current Medications Acetaminophen (Tylenol) 650 mg PO Q4H PRN PRN Reason: Headache/Fever or Pain Last Admin: 04/25/17 14:40 Dose: 650 mg Hydrocodone Bitart/Acetaminophen ([place] 10/325) 1 tab PO Q4H PRN PRN Reason: Moderate Pain (4-6) Last Admin: 04/26/17 04:40 Dose: 1 tab Doxycycline Hyclate (Vibramycin) 100 mg PO BID [facility] Last Admin: 04/26/17 08:38 Dose: 100 mg Famotidine (Pepcid) 20 mg PO BID [facility] Last Admin: 04/26/17 08:38 Dose: 20 mg Heparin Sodium (Porcine) (Heparin) 5,000 units SC TID [facility] Last Admin: 04/26/17 08:38 Dose: 5,000 units Lisinopril (Zestril) 40 mg PO DAILY [facility] Last Admin: 04/26/17 08:39 Dose: 40 mg Mometasone Furoate/Formoterol Fumar (Dulera 200 Mcg/5 Mcg Inhaler) 2 puff INH BID-RT [facility] Last Admin: 04/26/17 05:53 Dose: 2 puff Morphine Sulfate (Morphine) 2 mg SLOW IVP Q4H PRN PRN Reason: Breakthrough Pain Last Admin: 04/20/17 03:58 Dose: 2 mg Nicotine (Nicoderm Patch) 14 mg TD Q24HR [facility] Last Admin: 04/25/17 22:50 Dose: 14 mg Ondansetron HCl (Zofran) 4 mg IVP Q6H PRN PRN Reason: Nausea/Vomiting Last Admin: 04/26/17 09:57 Dose: 4 mg
[2017-04-26] MEDS: Ketorolac Tromethamine 30 MG/ML VIAL IVP SCH ×2 (13:08→17:32)
[2017-04-26] MEDS: Nicotine 14 MG PATCH TD SCH (21:22)
[2017-04-27] MEDS: Ketorolac Tromethamine 30 MG/ML VIAL IVP SCH ×2 (00:08→06:01)
[2017-04-27 05:03] LABS: Hemoglobin 11.1 g/dL (14.0-18.0); Mean Corpuscular HGB CONC 32.9 g/dL (32.0-36.0); Mean Corpuscular Volume 94.2 fl (80.0-94.0); Mean Platelet Volume 8.3 fL (7.4-10.4); Platelet Count 157 thou/uL (130-400); RBC Distribution Width 13.2 % (11.5-14.5); Red Blood Cell (RBC) Count 3.58 mill/uL (4.70-6.10); White Blood Cell (WBC) Count 8.7 thou/uL (4.8-10.8)
[2017-04-27 05:24] LABS: Anion Gap 10 mmol/L (10-20); BUN (Urea Nitrogen) 16 mg/dL (8.4-25.7); Calc. Creatinine Clearance 77 mL/min (70-130); Carbon Dioxide 29 mmol/L (22-29); Chloride 104 mmol/L (98-107); Potassium 4.3 mmol/L (3.5-5.1); Sodium 139 mmol/L (136-145)
[2017-04-27 05:25] LABS: Calcium 9.2 mg/dL (7.8-10.44); Estimated GFR-MDRD Greater than 90; Glucose 104 mg/dL (70-105)
[2017-04-27] MEDS: Mometasone/Formoterol 120 PUFF INHALER INH SCH ×2 (06:30→19:05)
[2017-04-27] MEDS: Heparin 5,000 UNITS/ML VIAL SC SCH ×3 (08:44→22:26)
[2017-04-27] MEDS: Doxycycline 100 MG CAP PO SCH ×2 (08:44→22:25)
[2017-04-27] MEDS: Lisinopril 20 MG TAB PO SCH (08:44)
[2017-04-27] MEDS: Famotidine 20 MG TAB PO SCH ×2 (08:44→22:26)
--- NOTE | 2017-04-27 11:04 | PDOC.PN ---
- Subjective Encounter Start Date: 04/27/17 Encounter Start Time: 08:20 Patient seen and examined. No new complaints. No overnight events - Objective Resuscitation Status: Resuscitation Status FULL:Full Resuscitation MAR Reviewed: Yes Vital Signs & Weight: Vital Signs (12 hours) Temp Pulse Resp BP BP Pulse Ox 04/27/17 08:44 137/79 04/27/17 08:03 98.3 F 72 16 137/79 97 04/27/17 07:00 98.1 F 71 14 04/27/17 06:30 71 14 98 04/27/17 04:45 98.1 F 78 16 172/68 H 97 04/27/17 00:19 98.2 F 74 16 124/69 100 Weight Admit Weight 112 lb Weight 112 lb I&O: 04/26/17 04/27/17 04/28/17 06:59 06:59 06:59 Intake Total 2125 960 Output Total 735 1070 Balance 1390 -110 Result Diagrams: 04/27/17 04:51 04/27/17 04:51 Phys Exam - Physical Examination Constitutional: NAD HEENT: PERRLA, moist MMs, sclera anicteric Neck: no JVD, supple Respiratory: no wheezing, no rales, no rhonchi chest tube in place Cardiovascular: RRR, no significant murmur, no rub Gastrointestinal: soft, non-tender, no distention, positive bowel sounds Musculoskeletal: no edema, pulses present Neurological: non-focal, normal sensation, moves all 4 limbs Psychiatric: normal affect, A&O x 3 Skin: no rash, normal turgor Dx/Plan (1) Pneumothorax Code(s): J93.9 - PNEUMOTHORAX, UNSPECIFIED Status: Acute Qualifiers: Pneumothorax type: spontaneous, primary Qualified Code(s): J93.11 - Primary spontaneous pneumothorax Comment: (2) COPD (chronic obstructive pulmonary disease) Status: Chronic (3) Protein-calorie malnutrition, moderate Code(s): E44.0 - MODERATE PROTEIN-CALORIE MALNUTRITION Status: Chronic (4) HTN (hypertension) Code(s): I10 - ESSENTIAL (PRIMARY) HYPERTENSION Status: Chronic Qualifiers: Hypertension type: essential hypertension Qualified Code(s): I10 - Essential (primary) hypertension Comment: (5) Tobacco abuse Code(s): Z72.0 - TOBACCO USE Status: Acute Comment: Reiterated smoking cessation. Nicotine patches. (6) Sepsis Code(s): A41.9 - SEPSIS, UNSPECIFIED ORGANISM Status: Ruled-out Qualifiers: Sepsis type: sepsis due to unspecified organism Qualified Code(s): A41.9 - Sepsis, unspecified organism Comment: - Plan cont current plan of care * still chest tube in place * Ct surgeon managing chest tube * medication reviewed as below * symptomatic treatment. Review of Systems - Review of Systems ENT: negative: Ear Pain, Ear Discharge, Nose Pain, Nose Discharge, Nose Congestion, Mouth Pain, Mouth Swelling, Throat Pain, Throat Swelling, Other Respiratory: negative: Cough, Dry, Shortness of Breath, Hemoptysis, SOB with Excertion, Pleuritic Pain, Sputum, Wheezing Cardiovascular: negative: chest pain, palpitations, orthopnea, paroxysmal nocturnal dyspnea, edema, light headedness, other Gastrointestinal: negative: Nausea, Vomiting, Abdominal Pain, Diarrhea, Constipation, Melena, Hematochezia, Other Genitourinary: negative: Dysuria, Frequency, Incontinence, Hematuria, Retention , Other Musculoskeletal: negative: Neck Pain, Shoulder Pain, Arm Pain, Back Pain, Hand Pain, Leg Pain, Foot Pain, Other Skin: negative: Rash, Lesions, Levon, Bruising, Other - Medications/Allergies Allergies/Adverse Reactions: Allergies Allergy/AdvReac Type Severity Reaction Status Date / Time Penicillins Allergy Hives Verified 04/20/17 02:34 Medications: Current Medications Acetaminophen (Tylenol) 650 mg PO Q4H PRN PRN Reason: Headache/Fever or Pain Last Admin: 04/25/17 14:40 Dose: 650 mg Hydrocodone Bitart/Acetaminophen ([place] 10/325) 1 tab PO Q4H PRN PRN Reason: Moderate Pain (4-6) Last Admin: 04/26/17 12:16 Dose: 1 tab Doxycycline Hyclate (Vibramycin) 100 mg PO BID [facility] Last Admin: 04/27/17 08:44 Dose: 100 mg Famotidine (Pepcid) 20 mg PO BID [facility] Last Admin: 04/27/17 08:44 Dose: 20 mg Heparin Sodium (Porcine) (Heparin) 5,000 units SC TID [facility] Last Admin: 04/27/17 08:44 Dose: 5,000 units Lisinopril (Zestril) 40 mg PO DAILY [facility] Last Admin: 04/27/17 08:44 Dose: 40 mg Mometasone Furoate/Formoterol Fumar (Dulera 200 Mcg/5 Mcg Inhaler) 2 puff INH BID-RT [facility] Last Admin: 04/27/17 06:30 Dose: 2 puff Morphine Sulfate (Morphine) 2 mg SLOW IVP Q4H PRN PRN Reason: Breakthrough Pain Last Admin: 04/20/17 03:58 Dose: 2 mg Nicotine (Nicoderm Patch) 14 mg TD Q24HR [facility] Last Admin: 04/26/17 21:22 Dose: 14 mg Ondansetron HCl (Zofran) 4 mg IVP Q6H PRN PRN Reason: Nausea/Vomiting Last Admin: 04/26/17 09:57 Dose: 4 mg
[2017-04-27] MEDS: Acetaminophen 325 MG TAB PO PRN (15:50)
--- NOTE | 2017-04-27 16:41 | RAD ---
PORTABLE CHEST ONE VIEW 04/27/17 at 12:25 p.m. HISTORY: Pneumothorax. Chest tube. FINDINGS/IMPRESSION: Comparison made to exam from previous day. Right sided chest tube and small right apical pneumothorax are again seen. Density in the right lung apex is redemonstrated. The heart size is normal. Left lung is clear. POS: [facility]
[2017-04-27] MEDS: Nicotine 14 MG PATCH TD SCH (22:27)
[2017-04-27] MEDS: HYDROcodone/Acetaminophen 10/325 mg Tablet PO PRN (22:27)
[2017-04-28] MEDS: HYDROcodone/Acetaminophen 10/325 mg Tablet PO PRN ×2 (03:14→10:33)
[2017-04-28] MEDS: Famotidine 20 MG TAB PO SCH (08:39)
[2017-04-28] MEDS: Doxycycline 100 MG CAP PO SCH (08:39)
[2017-04-28] MEDS: Lisinopril 20 MG TAB PO SCH (08:39)
[2017-04-28] MEDS: Heparin 5,000 UNITS/ML VIAL SC SCH (08:40)
--- NOTE | 2017-04-28 08:54 | RAD ---
FRONTAL VIEW CHEST: Date: 04/28/17 COMPARISON: Previous day. INDICATION: Chest tube, follow-up. FINDINGS: Slight decrease in volume of right apical pneumothorax with mild residual remaining. Hazy density of the right apex suggests superimposed fluid. There is also blunting of the right lateral costophrenic sulcus. Patchy density at the right lower lung zone present. IMPRESSION: 1. Interval decrease in volume of right apical pneumothorax. 2. Fluid density of the apex and pleural based density at the inferior right hemithorax remains. POS: [facility]
[2017-04-28] MEDS: Mometasone/Formoterol 120 PUFF INHALER INH SCH (10:18)
--- NOTE | 2017-04-28 10:27 | PDOC.PN ---
- Subjective Encounter Start Date: 04/28/17 Encounter Start Time: 08:30 Patient seen and examined. No new complaints. No overnight events - Objective Resuscitation Status: Resuscitation Status FULL:Full Resuscitation MAR Reviewed: Yes Vital Signs & Weight: Vital Signs (12 hours) Temp Pulse Resp BP BP Pulse Ox 04/28/17 10:18 76 12 04/28/17 08:39 123/62 04/28/17 07:53 98.0 F 76 16 98 04/28/17 07:52 98.0 F 76 16 123/62 98 04/28/17 04:30 98.1 F 76 16 119/72 98 04/28/17 00:39 98.4 F 78 15 127/68 96 Weight Admit Weight 112 lb Weight 112 lb I&O: 04/27/17 04/28/17 04/29/17 06:59 06:59 06:59 Intake Total 960 2250 Output Total 1070 0 Balance -110 2250 Result Diagrams: 04/27/17 04:51 04/27/17 04:51 Phys Exam - Physical Examination Constitutional: NAD HEENT: PERRLA, moist MMs, sclera anicteric Neck: no JVD, supple Respiratory: no wheezing, no rales, no rhonchi chest tube in place Cardiovascular: RRR, no significant murmur, no rub Gastrointestinal: soft, non-tender, no distention, positive bowel sounds Musculoskeletal: no edema, pulses present Neurological: non-focal, normal sensation, moves all 4 limbs Lymphatic: no nodes Psychiatric: normal affect, A&O x 3 Skin: no rash, normal turgor Dx/Plan (1) Pneumothorax Code(s): J93.9 - PNEUMOTHORAX, UNSPECIFIED Status: Acute Qualifiers: Pneumothorax type: spontaneous, primary Qualified Code(s): J93.11 - Primary spontaneous pneumothorax Comment: (2) COPD (chronic obstructive pulmonary disease) Status: Chronic (3) Protein-calorie malnutrition, moderate Code(s): E44.0 - MODERATE PROTEIN-CALORIE MALNUTRITION Status: Chronic (4) HTN (hypertension) Code(s): I10 - ESSENTIAL (PRIMARY) HYPERTENSION Status: Chronic Qualifiers: Hypertension type: essential hypertension Qualified Code(s): I10 - Essential (primary) hypertension Comment: (5) Tobacco abuse Code(s): Z72.0 - TOBACCO USE Status: Acute Comment: Reiterated smoking cessation. Nicotine patches. (6) Sepsis Code(s): A41.9 - SEPSIS, UNSPECIFIED ORGANISM Status: Ruled-out Qualifiers: Sepsis type: sepsis due to unspecified organism Qualified Code(s): A41.9 - Sepsis, unspecified organism Comment: - Plan cont current plan of care, social media content specialist * continue chest tube care * will need home health for chest tube care * medication reviewed as below * symptomatic treatment * will address discharge needs. Review of Systems - Review of Systems Constitutional: negative: fever, chills, sweats, weakness, malaise, other Respiratory: negative: Cough, Dry, Shortness of Breath, Hemoptysis, SOB with Excertion, Pleuritic Pain, Sputum, Wheezing Cardiovascular: negative: chest pain, palpitations, orthopnea, paroxysmal nocturnal dyspnea, edema, light headedness, other Gastrointestinal: negative: Nausea, Vomiting, Abdominal Pain, Diarrhea, Constipation, Melena, Hematochezia, Other Genitourinary: negative: Dysuria, Frequency, Incontinence, Hematuria, Retention , Other Musculoskeletal: negative: Neck Pain, Shoulder Pain, Arm Pain, Back Pain, Hand Pain, Leg Pain, Foot Pain, Other Skin: negative: Rash, Lesions, Levon, Bruising, Other - Medications/Allergies Allergies/Adverse Reactions: Allergies Allergy/AdvReac Type Severity Reaction Status Date / Time Penicillins Allergy Hives Verified 04/20/17 02:34 Medications: Current Medications Acetaminophen (Tylenol) 650 mg PO Q4H PRN PRN Reason: Headache/Fever or Pain Last Admin: 04/27/17 15:50 Dose: 650 mg Hydrocodone Bitart/Acetaminophen ([place] 10/325) 1 tab PO Q4H PRN PRN Reason: Moderate Pain (4-6) Last Admin: 04/28/17 03:14 Dose: 1 tab Doxycycline Hyclate (Vibramycin) 100 mg PO BID [facility] Last Admin: 04/28/17 08:39 Dose: 100 mg Famotidine (Pepcid) 20 mg PO BID [facility] Last Admin: 04/28/17 08:39 Dose: 20 mg Heparin Sodium (Porcine) (Heparin) 5,000 units SC TID [facility] Last Admin: 04/28/17 08:40 Dose: 5,000 units Lisinopril (Zestril) 40 mg PO DAILY [facility] Last Admin: 04/28/17 08:39 Dose: 40 mg Mometasone Furoate/Formoterol Fumar (Dulera 200 Mcg/5 Mcg Inhaler) 2 puff INH BID-RT [facility] Last Admin: 04/28/17 10:18 Dose: 2 puff Morphine Sulfate (Morphine) 2 mg SLOW IVP Q4H PRN PRN Reason: Breakthrough Pain Last Admin: 04/20/17 03:58 Dose: 2 mg Nicotine (Nicoderm Patch) 14 mg TD Q24HR [facility] Last Admin: 04/27/17 22:27 Dose: 14 mg Ondansetron HCl (Zofran) 4 mg IVP Q6H PRN PRN Reason: Nausea/Vomiting Last Admin: 04/26/17 09:57 Dose: 4 mg
[2017-04-28 11:06] VITALS: BP 133/73; TEMP 98.3
--- NOTE | 2017-04-28 14:24 | DIS ---
DATE OF ADMISSION: 04/19/2017 DATE OF DISCHARGE: 04/28/2017 PRIMARY CARE PHYSICIAN: [facility] call admission. DISCHARGE DISPOSITION: Home with home health. PRIMARY DISCHARGE DIAGNOSIS: Chest pneumothorax status post chest tube placement. SECONDARY DISCHARGE DIAGNOSES: Moderate protein calorie malnutrition, hypertension, chronic obstruct gio pulmonary disease, tobacco abuse disorder. PRIMARY PROCEDURE/OPERATION: Chest tube placement. RADIOLOGICAL INVESTIGATION: Patient had several chest x-rays while in hospital. SIGNIFICANT LABORATORY DATA: WBC 8.7, hemoglobin 11.1, platelets 157. INR 1.0. Sodium 139, creat inine 0.79. DISCHARGE MEDICATIONS: Tylenol #3 one or two tablets q.4 hourly p.r.n., albuterol sulfate 1 inhalati on q.6 hours p.r.n., doxycycline 100 mg p.o. b.i.d., lisinopril 20 mg p.o. daily, Dulera 2 puffs inha lation b.i.d., nicotine patch 14 mg daily. CONTRAINDICATIONS: None. CODE STATUS: FULL CODE. INPATIENT CONSULTANTS: None. ALLERGIES: PENICILLIN. DISCHARGE PLAN: Post hospital, the patient is discharged home and he subsequently will follow up wit primary senior clinical research associate. HOSPITAL COURSE: A 52-year-old male who was admitted by Dr. Gutierrez on 04/19/2017. Please see her H&P for further details. The patient was mainly admitted for increasing shortness of breath and he was f ound with pneumothorax. He required chest tube placement and subsequently he had several chest x-ray s. His pneumothorax was not completely resolved and that is why CT surgeon recommended to discharge him with a chest tube with Heimlich valve. We have arranged home health on discharge. We have presc ribed the above-mentioned medication. At this point, patient is medically stable for discharge and h e will follow up with primary care physician, CT surgeon for outpatient evaluation, for removal of ch est tube. Patient is given counseling to avoid smoking. Healthy lifestyle measures discussed. The patient is seen and examined at bedside today. Please see my progress note from today for further de tails.
--- NOTE | 2017-05-06 10:53 | PQF ---
ROBERT DAN SALIM NOORJIBHAI MD [id number] [facility] [id number] CLINICAL DOCUMENTATION CLARIFICATION FORM: POST DISCHARGE Addendum to original discharge summary date: ____ Late entry note date: __ ROBERT DAN [id number] SARAH ALY PLEASE DOCUMENT YOUR RESPONSE BELOW PLEASE FAX RESPONSE BACK TO YOUR INPUT IS NEEDED TO CORRECTLY CODE A DIAGNOSIS FOR YOUR PATIENT. DATE: 05/06/2017 ATTN: DR. PANIAGUA Please exercise your independent, professional judgment in responding to the clarification form. Clinical indicators are provided on the bottom of this form for your review Please check appropriate box(s) to clarify if the following diagnosis has been ruled in our ruled out: PNEUMONIA (CDI/ Coding list diagnosis here) [ ] Ruled in diagnosis [ ] Continue to treat [ ] Resolved [ x ] Ruled out diagnosis [ ] Cannot rule out diagnosis [ ] Other diagnosis [ ] Unable to determine In addition, please specify: Present on Admission (POA): [ ] Yes [ ] No [ ] Unable to determine For continuity of documentation, please document condition throughout progress notes and discharge summary. Thank You. CLINICAL INDICATORS - SIGNS / SYMPTOMS / LABS: H&P: RECURRENT PNEUMOTHORAX 04/25 PN: RIGHT-SIDED PNEUMONIA 04/24 PN: RIGHT SIDE PNEUMONIA 04/23 PN: POSSIBLY PNEUMONIA, X-RAY SHOWS IMPROVEMENT IN RIGHT-SIDED INFILTRATE DS: CHEST PNEUMOTHORAX RISK FACTORS: PNEUMOTHORAX COPD TREATMENTS: CHEST TUBE (This form is maintained as a part of the permanent medical record) 2014 [employer]. All Rights Reserved Angela Gomez CCS, [employer]ODUCTION [employer]OOK-H [email or web address] [phone] [email or web address]
== END 2017-04-28 14:54 | disposition home health service (06) | DRG 200 ==
LOC: ERS 19:03 → SURG A 21:10
PROVIDERS: ADMIT Internal Medicine; ATTEND Internal Medicine
DX: J93.11 Primary spontaneous pneumothorax (principal); E44.0 Moderate protein-calorie malnutrition; J44.1 Chronic obstructive pulmonary disease with (acute) exacerbation; Z68.1 Body mass index [BMI] 19.9 or less, adult; I10 Essential (primary) hypertension; F17.210 Nicotine dependence, cigarettes, uncomplicated
CPT/HCPCS: 36415; 71045; 80048; 80053; 80202; 85025; 85027; 85610; 85730; 96374; 96375; A4216; G8978-GP-CM; G8979-GP-CJ; J0696; J1644; J1885; J2270; J2405; J3370; J7050; S0028